=== PATIENT | male | born 1955 | race Caucasian/White ===

== ENCOUNTER → 2016-05-17 | Outpatient (CLI) | payer BC ==
[2016-05-17 12:12] LABS: CHLORIDE,CL 107 mmol/L (98-110); SODIUM,NA 139 mmol/L (136-146)
== END ==
LOC: MW.CHFP 11:25
PROVIDERS: ATTEND Emergency Medicine
DX: R10.9 Unspecified abdominal pain (principal)
CPT/HCPCS: 36415; 80053; 82150; 85025

== ENCOUNTER 2016-06-08 09:00 | Day surgery (SDC) | payer BC ==
[~2016-06-08 09:00] MED LIST: Lactated Ringers 1,000 ML IV SCH; Lidocaine 2% 5 ML SDV ONE; Propofol 200 MG/20 ML SDV ONE
--- NOTE | 2016-06-08 09:32 | PCM.PREANE ---
Preanesthetic Assessment - Anesthesia/Transfusion/Family Hx Anesthesia History: Prior Anesthesia Without Reaction Family History of Anesthesia Reaction: No Transfusion History: No Prior Transfusion(s) - Review of Systems General: No Symptoms Pulmonary: No Symptoms Cardiovascular: No Symptoms Gastrointestinal: No symptoms Neurological: No Symptoms Other: Reports: None - Physical Assessment Height: 1.88 m Weight: 95.708 kg ASA Class: 2 Mental Status: Alert & Oriented x3 Airway Class: Mallampati = 2 Dentition: Reports: Normal Dentition Thyro-Mental Finger Breadths: 3 Mouth Opening Finger Breadths: 2 ROM/Head Extension: Full Lungs: Clear to auscultation, Normal respiratory effort - Allergies Allergies/Adverse Reactions: Allergies Allergy/AdvReac Type Severity Reaction Status Date / Time No Known Allergies Allergy Verified 07/03/15 10:09 - Blood Blood Available: No - Anesthesia Plan Pre-Op Medication Ordered: None - Acknowledgements Anesthesia Type Planned: MAC Pt an Appropriate Candidate for the Planned Anesthesia: Yes Alternatives and Risks of Anesthesia Discussed w Pt/Guardian: Yes Pt/Guardian Understands and Agrees with Anesthesia Plan: Yes PreAnesthesia Questionnaire - Past Health History Medical/Surgical History: Denies Medical/Surgical History Cardiovascular History: Reports: Other (see below) (h/o palpitations long time ago) Respiratory History: Reports: Other (see below) (left lung nodule (stable) followed in [place]) Gastrointestinal History: Reports: GERD, Other (see below) (h/o colon polyp 3 1/ 2 years ago) Neurological History: Reports: Other (see below) Other Neuro History: hx cracked vertebrae in neck - Past Surgical History Head Surgeries/Procedures: Reports: None GI Surgical History: Reports: Appendectomy, Colonoscopy - SUBSTANCE USE Smoking Status *Q: Former Smoker Tobacco Use Within Last Twelve Months: No Recreational Drug Use History: No - HOME MEDS Home Medications: Home Meds Aspirin [[place] Aspirin] 81 mg PO DAILY 06/03/16 [History] Omeprazole 20 mg PO DAILY 06/03/16 [History] - CURRENT (IN HOUSE) MEDS Current Meds: Current Medications Lactated Ringer's (Ringers, Lactated) 1,000 mls @ 125 mls/hr IV ASDIRECTED HIRA Last Admin: 06/08/16 09:20 Dose: 125 mls/hr Discontinued Medications Lidocaine (Xylocaine-Mpf 2%) Confirm Administered Dose 5 ml .ROUTE .STK-MED ONE Stop: 06/08/16 08:37 Propofol (Diprivan 20 Ml) Confirm Administered Dose 400 mg .ROUTE .STK-MED ONE Stop: 06/08/16 08:37
[2016-06-08] MEDS ORDERED: Propofol 200 MG/20 ML SDV ONE (11:08)
--- NOTE | 2016-06-08 11:42 | PCM.OPNOTE ---
- General Post-Op/Procedure Note Date of Surgery/Procedure: 06/08/16 Operative Procedure(s): egd w bx. colonoscopy Findings: see dict [id number] Pre Op Diagnosis: gib Post-Op Diagnosis: gastritis and pud, and colon diverticulosis Anesthesia Technique: Moderate sedation Primary Surgeon: Sreedhar Lognoria Complications: None Condition: Good
--- NOTE | 2016-06-08 11:51 | PCM.POSTAN ---
POST ANESTHESIA ASSESSMENT - MENTAL STATUS Mental Status: alert, oriented - RESPIRATORY Respiratory Status: respiratory rate WNL, airway patent, O2 saturation stable - CARDIOVASCULAR CV Status: pulse rate WNL, blood pressure stable - GASTROINTESTINAL GI Status: no symptoms - POST OP HYDRATION Hydration Status: adequate & stable - OBSERVATIONS Free Text/Narrative:: no anesthesia problems
[2016-06-08 13:38] VITALS: BP 123/77
--- NOTE | 2016-06-08 17:05 | OR ---
SURGEON: Sreedhar Longoria MD DATE OF PROCEDURE: 06/08/2016 PREOPERATIVE DIAGNOSIS: Gastrointestinal bleeding. POSTOPERATIVE DIAGNOSES: 1. Gastritis. 2. Peptic ulcer disease. 3. Diverticulosis of the colon. PROCEDURE PERFORMED: 1. Esophagogastroduodenoscopy with biopsy. 2. Colonoscopy. COMPLICATIONS: None. PROCEDURE IN DETAIL: EGD: The patient was taken to the endoscopy room, and with the SITE FOREMAN, Diprivan was administered. A well-lubricated EGD scope was gently inserted through the oropharynx, down the esophagus, passing through the gastroesophageal junction, into the stomach. The mucosa was examined upon the passage. Any etiology will be noted. Once in the stomach, we continued to advance to the distal antrum, passed through the pylorus into the second portion of the duodenum. Again, the mucosa was examined for any abnormality and etiology. The scope was then retrieved back to the stomach and then retroflexed to look at the fundus of the stomach. If a biopsy was indicated, we will biopsy the antrum, body, and gastroesophageal junction. The air will be sucked out while the scope is retrieved to reduce the patient's discomfort. The patient tolerated the procedure well. There were no intraoperative complications. Dr. Longoria was present through the whole procedure. Prior to surgery, a time-out had been called, the patient identified, procedure identified and antibiotic administered. FINDINGS: 1. The patient is easily sedated with SITE FOREMAN and Diprivan. The patient is soundly snoring. 2. Oropharynx and proximal esophagus is free of disease and distal esophagus at GE junction at 40 cm shows significant salmon color change consistent with acid reflux. Stomach rugae is normal in appearance. There is water, but there is no bile, food particle, or blood. Antrum is very inflamed with some area looked like a very small healed ulcer. There is no avril ulcer. Duodenum is grossly normal in appearance. Scope was retrieved back to the stomach and retroflexed to look at the fundus of the stomach and there is no hiatal hernia. Biopsy was done at antrum, GE junction at 40 cm, and stomach and sucked out the air while scope withdrawal. Colonoscopy: The patient was taken to the endoscopy room. A time out was called, patient identified, and procedure identified. Diprivan was then administrated. Patient went from awake to sleep, hearing doctor talking or door closing is normal. Perineum inspection and digital examination were then performed. A well-lubricated colonoscope was gently inserted through the rectum, advanced past the rectosigmoid junction, the descending colon, splenic flexure, transverse colon, hepatic flexure, ascending colon, arrived to the cecum. Cecum was identified as dictated in the finding. Then the scope was carefully withdrawn while attention was paid to the mucosal surface for any abnormality. Air will be sucked out during the scope withdrawal. At the rectum, retroflexed to examine any rectal diseases, fistula or hemorrhoids. During mucosal examination, abnormality or polyp was noted; picture taken and biopsy performed. Patient tolerated procedure well. There were no intraoperative complications, and Dr. Longoria was present throughout the whole procedure. FINDINGS: 1. The patient is easily sedated with SITE FOREMAN and Diprivan. The patient is soundly snoring. 2. The bowel prep is average with moderate amount of liquid stool, no semi- formed stool, and colon is rather straight forward. Cecum indicated by ileocecal fold, one-to-one indentation, and light mittens appendiceal orifice is not observed. The mucosa was examined upon scope pulling out. The patient has very extensive diverticulosis on the left colon and start with very early in the sigmoid and extend all the way a bit past the splenic flexure into the distal part of the transverse colon. No signs or symptoms of diverticulitis and the patient does not have a polyp, mass, growth, inflammation, stricture, ulceration, bleeding, AV malformation. The patient has mild internal hemorrhoids and no external hemorrhoids. The patient will benefit from a repeat colonoscopy 10 years from today or if clinically indicated otherwise. BALAJI / MARYSOL /[id number]
== END 2016-06-08 12:15 | disposition home or self-care (01) ==
LOC: MW.SDS 09:00
PROVIDERS: ATTEND Surgery
DX: K29.50 Unspecified chronic gastritis without bleeding (principal); K20.9 Esophagitis, unspecified; K57.30 Diverticulosis of large intestine without perforation or abscess without bleeding; Z79.82 Long term (current) use of aspirin; Z79.899 Other long term (current) drug therapy; Z90.49 Acquired absence of other specified parts of digestive tract; Z98.890 Other specified postprocedural states
CPT/HCPCS: 43239; 45378; J7120; 00740; 88305; 88312; J2704

== ENCOUNTER 2018-10-11 10:34 | Emergency (ER) | payer BC ==
--- NOTE | 2018-10-11 10:41 | EDM.PDOC ---
ED HPI GENERAL MEDICAL PROBLEM - General Stated Complaint: POSSIBLE HEART ATTACK LAST NIGHT Time Seen by Provider: 10/11/18 10:34 Source of Information: Reports: Patient History Limitations: Reports: No Limitations - History of Present Illness INITIAL COMMENTS - FREE TEXT/NARRATIVE: HISTORY AND PHYSICAL: History of present illness: Patient is a 62-year-old male presents to the ED today with concern of a dull chest pain that he rates a 2 out of 10. Patient states that last night at about 2 in the morning he had chest pain that woke him up from sleep. Patient states at that time his pain was more severe and he rated it as 6 out of 10. Patient states he took 2 full dose of aspirin at that time and had resolution of his symptoms within about 10-20 minutes and went back to sleep. Patient states this morning he still has the dull sensation in his chest and took another aspirin before coming to the ED. Patient denies any health history or any other symptoms or concerns at this time. Patient denies fever, chills, shortness of breath, or cough. Denies headache, neck stiff ness, change in vision, syncope, or near syncope. Denies nausea, vomiting, abdominal pain, diarrhea, constipation, or dysuria. Has not noted any blood in urine or stool. Patient has been eating and drinking appropriately. Review of systems: As per history of present illness and below otherwise all systems reviewed and negative. Past medical history: As per history of present illness and as reviewed below otherwise noncontributory. Surgical history: As per history of present illness and as reviewed below otherwise noncontributory. Social history: See social history for further information Family history: As per history of present illness and as reviewed below otherwise noncontributory. Physical exam: General: Patient is alert, oriented, and in no acute distress. Patient sitting comfortably on exam table. HEENT: Atraumatic, normocephalic, pupils equal and reactive bilaterally, negative for conjunctival pallor or scleral icterus, mucous membranes moist, TMs normal bilaterally, throat clear, neck supple, nontender, trachea midline. No drooling or trismus noted. No meningeal signs. No hot potato voice noted. Lungs: Clear to auscultation, breath sounds equal bilaterally, chest nontender. Heart: S1S2, regular rate and rhythm without overt murmur Abdomen: Soft, nondistended, nontender. Negative for masses or hepatosplenomegaly. Negative for costovertebral tenderness. Pelvis: Stable nontender. Genitourinary: Deferred. Rectal: Deferred. Skin: Intact, warm, dry. No lesions or rashes noted. Extremities: Atraumatic, negative for cords or calf pain. Neurovascular unremarkable. Neuro: Awake, alert, oriented. Cranial nerves II through XII unremarkable. Cerebellum unremarkable. Motor and sensory unremarkable throughout. Exam nonfocal. Notes: Expresses complete resolution of symptoms. Admission for observation was offered to patient but he declines at this time. All risks versus benefits discussed with patient and expresses understanding. Discussed the importance for follow-up with drum sander or primary care provider. Voices understanding and is agreeable to plan of care. Denies any further questions or concerns at this time. Diagnostics: CBC, CMP, UA, EKG, troponin, chest x-ray Therapeutics: None Prescription: None Impression: Chest pain, unspecified Plan: 1. You can alternate ibuprofen and Tylenol as directed for pain and discomfort. 2. Follow-up with your primary care provider or drum sander as discussed. Return to the ED as needed and as discussed. Definitive disposition and diagnosis as appropriate pending reevaluation and review of above. Chest Pain Score (Numeric/FACES): 3 - Related Data Allergies Allergy/AdvReac Type Severity Reaction Status Date / Time No Known Allergies Allergy Verified 10/11/18 10:56 Home Meds: Home Meds Aspirin [[place] Aspirin] 81 mg PO DAILY 06/03/16 [History] Past Medical History - Past Health History Medical/Surgical History: Denies Medical/Surgical History Cardiovascular History: Reports: Other (See Below) Respiratory History: Reports: Other (See Below) Gastrointestinal History: Reports: GERD, Other (See Below) Neurological History: Reports: Other (See Below) Other Neuro History: hx cracked vertebrae in neck - Past Surgical History Head Surgeries/Procedures: Reports: None GI Surgical History: Reports: Appendectomy, Colonoscopy Social & Family History - Family History Family Medical History: Noncontributory - Caffeine Use Caffeine Use: Reports: Coffee ED ROS GENERAL - Review of Systems Review Of Systems: ROS reveals no pertinent complaints other than HPI. ED EXAM, GENERAL - Physical Exam Exam: See Below (see dictation) Course - Vital Signs Last Recorded V/S: Last Vital Signs Temp 35.8 C 10/11/18 10:57 Pulse 68 10/11/18 11:30 Resp 16 10/11/18 11:30 BP 120/76 10/11/18 11:30 Pulse Ox 96 10/11/18 11:30 - Orders/Labs/Meds Orders: Active Orders 24 hr Category Date Time Status EKG Documentation Completion [RC] STAT Care 10/11/18 10:35 Active UA RFX PAVEL AND CULT IF INDIC [URIN] Stat Lab 10/11/18 10:35 Ordered Labs: Laboratory Tests 10/11/18 10/11/18 10/11/18 Range/Units 10:38 10:38 10:38 WBC 6.76 (4.0-11.0) K/uL RBC 4.92 (4.50-5.90) M/uL Hgb 16.4 (13.0-17.0) g/dL Hct 48.9 (38.0-50.0) % MCV 99.4 H (80.0-98.0) fL MCH 33.3 H (27.0-32.0) pg MCHC 33.5 (31.0-37.0) g/dL RDW Std Deviation 45.6 (28.0-62.0) fl RDW Coeff of Zofia 13 (11.0-15.0) % Plt Count 297 (150-400) K/uL MPV 9.50 (7.40-12.00) fL Neut % (Auto) 69.2 (48.0-80.0) % Lymph % (Auto) 21.9 (16.0-40.0) % [place] % (Auto) 7.1 (0.0-15.0) % Eos % (Auto) 1.5 (0.0-7.0) % Baso % (Auto) 0.3 (0.0-1.5) % Neut # (Auto) 4.7 (1.4-5.7) K/uL Lymph # (Auto) 1.5 (0.6-2.4) K/uL [place] # (Auto) 0.5 (0.0-0.8) K/uL Eos # (Auto) 0.1 (0.0-0.7) K/uL Baso # (Auto) 0.0 (0.0-0.1) K/uL Nucleated RBC % 0.0 /100WBC Nucleated RBCs # 0 K/uL INR 0.98 Sodium 140 (136-148) mmol/L Potassium 4.4 (3.5-5.1) mmol/L Chloride 105 (98-107) mmol/L Carbon Dioxide 26.8 (21.0-32.0) mmol/L BUN 14 (7.0-18.0) mg/dL Creatinine 1.0 (0.8-1.3) mg/dL Est Cr Clr Drug Dosing 88.78 mL/min Estimated GFR (MDRD) > 60.0 ml/min Glucose 159 H (74-106) mg/dL Calcium 9.3 (8.5-10.1) mg/dL Total Bilirubin 0.5 (0.2-1.0) mg/dL AST 20 (15-37) IU/L ALT 35 (14-63) IU/L Alkaline Phosphatase 52 (46-116) U/L Troponin I < 0.050 (0.000-0.056) ng/mL Total Protein 7.3 (6.4-8.2) g/dL Albumin 3.8 (3.4-5.0) g/dL Globulin 3.5 (2.6-4.0) g/dL Albumin/Globulin Ratio 1.1 (0.9-1.6) Departure - Departure Time of Disposition: 12:32 Disposition: Home, Self-Care 01 Clinical Impression: Chest pain Qualifiers: Chest pain type: unspecified Qualified Code(s): R07.9 - Chest pain, unspecified - Discharge Information Additional Instructions: The following information is given to patients seen in the emergency department who are being discharged to home. This information is to outline your options for follow-up care. We provide all patients seen in our emergency department with a follow-up referral. The need for follow-up, as well as the timing and circumstances, are variable depending upon the specifics of your emergency department visit. If you don't have a primary care physician on staff, we will provide you with a referral. We always advise you to contact your personal physician following an emergency department visit to inform them of the circumstance of the visit and for follow-up with them and/or the need for any referrals to a consulting specialist. The emergency department will also refer you to a specialist when appropriate. This referral assures that you have the opportunity for follow-up care with a specialist. All of these measure are taken in an effort to provide you with optimal care, which includes your follow-up. Under all circumstances we always encourage you to contact your private physician who remains a resource for coordinating your care. When calling for follow-up care, please make the office aware that this follow-up is from your recent emergency room visit. If for any reason you are refused follow-up, please contact the [facility] Emergency Department at and asked to speak to the emergency department charge nurse. [facility] Primary Care / Cardiology [address] [place] [id number] [facility] [address] [place] [id number] 1. You can alternate ibuprofen and Tylenol as directed for pain and discomfort. 2. Follow-up with your primary care provider or drum sander as discussed. Return to the ED as needed and as discussed. - My Orders Last 24 Hours: My Active Orders 10/11/18 10:35 EKG Documentation Completion [RC] STAT UA RFX PAVEL AND CULT IF INDIC [URIN] Stat - Assessment/Plan Last 24 Hours: My Active Orders 10/11/18 10:35 EKG Documentation Completion [RC] STAT UA RFX PAVEL AND CULT IF INDIC [URIN] Stat
[2018-10-11 11:25] LABS: BLOOD UREA NITROGEN,BUN 14 mg/dL (7.0-18.0); CARBON DIOXIDE,CO2 26.8 mmol/L (21.0-32.0); CHLORIDE,CL 105 mmol/L (98-107); GLUCOSE RANDOM 159 mg/dL (74-106); POTASSIUM,K 4.4 mmol/L (3.5-5.1); SODIUM,NA 140 mmol/L (136-148)
--- NOTE | 2018-10-11 12:22 | CR ---
Chest: Portable view of the chest was obtained. Comparison: Prior chest x-ray of 09/07/16. Stable granuloma is noted within the left lung base. Lung markings are slightly increased on the left side which appear chronic. No acute parenchymal change is appreciated. Heart size is within normal limits for portable technique. Upper mediastinum is normal. Bony structures are grossly intact. Impression: 1. Stable findings as described above. Nothing acute is appreciated on portable chest x-ray. Diagnostic code #2 MTDD
[2018-10-11 12:54] VITALS: BP 121/83
== END 2018-10-11 12:53 | disposition home or self-care (01) ==
LOC: MW.ED 10:34
DX: R07.9 Chest pain, unspecified (principal); Z79.82 Long term (current) use of aspirin; Z90.49 Acquired absence of other specified parts of digestive tract
CPT/HCPCS: 36415; 71045; 71045-26; 80053; 84484; 85025; 85610; 93005; 99285-25

== ENCOUNTER 2019-10-17 21:43 | Emergency (ER) | payer BC ==
[2019-10-17 21:57] VITALS: BP 118/56; PULSE 63
[2019-10-17] MEDS ORDERED: Cephalexin 500 MG Cap PO ONE (22:09)
--- NOTE | 2019-10-17 22:09 | EDM.PDOC ---
ED HPI GENERAL MEDICAL PROBLEM - General Chief Complaint: Laceration Stated Complaint: LACERATION ON LEG Time Seen by Provider: 10/17/19 22:10 - History of Present Illness INITIAL COMMENTS - FREE TEXT/NARRATIVE: HISTORY AND PHYSICAL: History of present illness: This is a 63-year-old gentleman with no history of hypertension, diabetes, liver, lung, kidney problems who presents to the ER today secondary to a laceration to his left pretibial region that he incurred approximately 5 days ago on a combine. Patient reports that he is putting alcohol on it and Neosporin and it is not healing as fast that he thought it should be so he came for further evaluation. Patient has noticed some yellow drainage. Patient denies any recent fevers, chills, nausea, vomiting, diarrhea, dysuria, frequency, urgency, chest pain or shortness of breath. Review of systems: As per history of present illness and below otherwise all systems reviewed and negative. Past medical history: As per history of present illness and as reviewed below otherwise noncontributory. Surgical history: As per history of present illness and as reviewed below otherwise noncontributory. Social history: No reported history of drug or alcohol abuse. Family history: As per history of present illness and as reviewed below otherwise noncontributory. Physical exam: Constitutional: Patient is oriented to person, place, and time. Appears well-developed and well-nourished. No distress. HEENT: Moist mucous membranes Head: Normocephalic and atraumatic Eyes: Right eye exhibits no discharge. Left eye exhibits no discharge. No scleral icterus Neck: Normal range of motion. No tracheal deviation present. Cardiovascular: Normal rate and regular rhythm. Pulmonary: Effort normal, no respiratory distress. Abdominal: No distention Musculoskeletal: Normal range of motion Neurologic: Alert and oriented to person, place and time. Skin: [place], warm and dry. Psychiatric: Normal mood and affect. Behavior is normal. Judgment and thought content normal. Nursing note and vital signs have been reviewed Patient's ER physical exam is significant for a 2 cm longitudinal laceration to his left pretibial region. There is a small amount of yellow discharge noted within the wound but no fluctuance, erythema or warmth. Assessment and plan: 63-year-old with a wound to his left pretibial area from 5 days ago with possible early infection. Patient be started on Keflex and will be instructed to keep it covered with Neosporin and follow-up with his family doctor in 2 days for wound check. Reassessment at the time of disposition demonstrates that the patient is in no acute distress. The patient has remained stable throughout the entire ED visit and is without objective evidence for acute process requiring urgent intervention or hospitalization. The patient is stable for discharge, counseling is provided as documented above, discussed symptomatic treatment and specific conditions for return. I have spoken with the patient/caregive and discussed todays findings, in addition to providing specific details for the plan of care. Questions are answered and there is agreement with the plan. left gongora Pain Score (Numeric/FACES): 3 - Related Data Allergies Allergy/AdvReac Type Severity Reaction Status Date / Time No Known Allergies Allergy Verified 10/17/19 21:57 Home Meds: Home Meds Aspirin [[place] Aspirin] 0.5 tab PO DAILY 06/03/16 [History] cephALEXin [Keflex] 500 mg PO Q8H #21 cap 10/17/19 [Rx] Past Medical History - Past Health History Medical/Surgical History: Denies Medical/Surgical History Cardiovascular History: Reports: Other (See Below) Respiratory History: Reports: Other (See Below) Gastrointestinal History: Reports: GERD, Other (See Below) Neurological History: Reports: Other (See Below) Other Neuro History: hx cracked vertebrae in neck - Infectious Disease History Infectious Disease History: Reports: None - Past Surgical History Head Surgeries/Procedures: Reports: None GI Surgical History: Reports: Appendectomy, Colonoscopy Social & Family History - Family History Family Medical History: Noncontributory - Tobacco Use Smoking Status *Q: Never Smoker - Caffeine Use Caffeine Use: Reports: Coffee - Alcohol Use Days Per Week of Alcohol Use: 2 Number of Drinks Per Day: 3 Total Drinks Per Week: 6 - Recreational Drug Use Recreational Drug Use: No ED ROS GENERAL - Review of Systems Review Of Systems: See Below ED EXAM, SKIN/RASH Exam: See Below Course - Vital Signs Last Recorded V/S: Last Vital Signs Temp 97.2 F 10/17/19 21:54 Pulse 63 10/17/19 21:54 Resp 18 10/17/19 21:54 BP 118/56 L 10/17/19 21:54 Pulse Ox 94 L 10/17/19 21:54 - Orders/Labs/Meds Meds: Medications Discontinued Medications Generic Name Dose Route Start Last Admin Trade Name Pengq PRN Reason Stop Dose Admin Cephalexin 500 mg 10/17/19 22:09 Keflex PO 10/17/19 22:10 ONETIME ONE Departure - Departure Time of Disposition: 22:07 Disposition: Home, Self-Care 01 Condition: Good Clinical Impression: Infection, wound status post trauma - Discharge Information Prescriptions: cephALEXin [Keflex] 500 mg PO Q8H #21 cap Instructions: Wound Infection Referrals: Khai Wise MD [Primary Care Provider] - Forms: ED Department Discharge Additional Instructions: Please make an appointment to see your doctor within 3 to 5 days for further evaluation of your wound. You have been given a prescription for Keflex to take 3 times a day for the next 7 days. The following information is given to patients seen in the emergency department who are being discharged to home. This information is to outline your options for follow-up care. We provide all patients seen in our emergency department with a follow-up referral. The need for follow-up, as well as the timing and circumstances, are variable depending upon the specifics of your emergency department visit. If you don't have a primary care physician on staff, we will provide you with a referral. We always advise you to contact your personal physician following an emergency department visit to inform them of the circumstance of the visit and for follow-up with them and/or the need for any referrals to a consulting specialist. The emergency department will also refer you to a specialist when appropriate. This referral assures that you have the opportunity for follow-up care with a specialist. All of these measure are taken in an effort to provide you with optimal care, which includes your follow-up. Under all circumstances we always encourage you to contact your private physician who remains a resource for coordinating your care. When calling for follow-up care, please make the office aware that this follow-up is from your recent emergency room visit. If for any reason you are refused follow-up, please contact the [facility] at and asked to speak to the emergency department charge nurse. Sepsis Event Note (ED) - Evaluation Sepsis Screening Result: No Definite Risk - Focused Exam Vital Signs: Vital Signs Temp Pulse Resp BP Pulse Ox 10/17/19 21:54 97.2 F 63 18 118/56 L 94 L
== END 2019-10-17 22:21 | disposition home or self-care (01) ==
LOC: MW.ED 21:43
DX: S81.802A Unspecified open wound, left lower leg, initial encounter (principal); L08.9 Local infection of the skin and subcutaneous tissue, unspecified; I10 Essential (primary) hypertension; E11.9 Type 2 diabetes mellitus without complications; Z79.82 Long term (current) use of aspirin; W26.8XXA Contact with other sharp object(s), not elsewhere classified, initial encounter
CPT/HCPCS: 99282

== ENCOUNTER 2023-09-09 16:28 | Emergency (ER) | payer BC ==
[2023-09-09] MEDS: Diphtheria,Pertussis(Acell),Tetanus Vaccine 0.5 ML Syringe IM ONE (18:51)
[2023-09-09 19:14] VITALS: BP 162/95; PULSE 89
== END 2023-09-09 19:14 | disposition home or self-care (01) ==
LOC: MW.ED 16:28
DX: S60.352A Superficial foreign body of left thumb, initial encounter (principal); Z75.8 Other problems related to medical facilities and other health care; Z79.899 Other long term (current) drug therapy; Z23 Encounter for immunization; W45.8XXA Other foreign body or object entering through skin, initial encounter
CPT/HCPCS: 90471; 90715; 99282-25; 99283

== ENCOUNTER 2023-10-18 10:19 | Day surgery (SDC) | payer BC ==
[~2023-10-18 10:19] MED LIST changes: -Lactated Ringers 1,000 ML IV SCH; -Lidocaine 2% 5 ML SDV ONE; -Propofol 200 MG/20 ML SDV ONE; +Sodium Chloride 0.9% 10 ML Syringe FLUSH PRN; +Sodium Chloride 0.9% 2.5 ML Syringe FLUSH PRN; +Sodium Chloride 0.9% 20 ML SDV IV PRN
[2023-10-18] MEDS: Lactated Ringers 1,000 ML IV SCH (10:48)
[2023-10-18] MEDS ORDERED: propofoL 50 ML ONE ×2 (13:02→13:15)
[2023-10-18] MEDS ORDERED: fentaNYL 100 MCG/2 ML SDV ONE (13:17)
[2023-10-18 14:13] VITALS: BP 126/75; PULSE 84
== END 2023-10-18 14:18 | disposition home or self-care (01) ==
LOC: MW.SDS 10:19
PROVIDERS: ATTEND Surgery
DX: Z12.11 Encounter for screening for malignant neoplasm of colon (principal); K63.5 Polyp of colon; K29.50 Unspecified chronic gastritis without bleeding; B96.81 Helicobacter pylori [H. pylori] as the cause of diseases classified elsewhere; K44.9 Diaphragmatic hernia without obstruction or gangrene; K57.30 Diverticulosis of large intestine without perforation or abscess without bleeding; K31.A0 Gastric intestinal metaplasia, unspecified; E78.5 Hyperlipidemia, unspecified; Z86.010 Personal history of colon polyps; Z79.82 Long term (current) use of aspirin
CPT/HCPCS: 43239; 45380; J2704; J3010; J7120; 00813